=== PATIENT | male | born 1990 | race Two or more races ===

== ENCOUNTER 2019-12-24 17:15 | Inpatient (IN) ==
[2019-12-24] MEDS ORDERED: XOPENEX 1.25 MG/3 ML NEBULE NEB ONE ×2 (17:27→17:33)
[2019-12-24] MEDS ORDERED: NS 1000 ML 1,000 ML ONE ×2 (17:28→18:50)
[2019-12-24] MEDS ORDERED: MOTRIN TAB 800 MG PO ONE ×2 (17:28→17:34)
[2019-12-24] MEDS: NS 1000 ML 1,000 ML IV SCH (17:35)
[2019-12-24] MEDS ORDERED: DUONEB 0.5 MG/3 MG (3 mL) NEB ONE (17:48)
--- NOTE | 2019-12-24 17:49 | DR.SOBA ---
HPI - Time Seen Time seen: 17:46 - Complaints Chief Complaint Doctors Comments: Patient is complaining of cold, cough, fever, SOB, wheezing for the past three days getting progressively worst. Patient was seen in the emergency room and COVID-19 test was done and is still pending. Patient is taking zithromax 250mg; Tessalon perles and sinus medicines. States he has been having catching his breath today and has a history of asthma. states he has take breathing treatments in the past with improvement in his SOB. Patient works with the [employer]. He denies chest pain, nauea or vomiting. - COVID-19 Coronavirus risk:travel/contact w/high risk person: Yes Has patient experienced Coronavirus symptoms: Yes Coronavirus symptoms experienced: Fever, Coughing, Shortness of Breath - Reviewed Nurses Notes Reviewed: Yes - Source History Provided: Patient - Mode of Arrival Mode of Arrival: Ambulatory - Duration Duration: Days - Context Onset:: At Rest PE Risk Factors:: None History of:: Asthma Currently on:: Neither Prehospital Care:: None - Modifying Factors Worsens:: Exertion Improves:: Nothing - Associated Signs and Symptoms Associated Signs and Symptoms: Fever, Wheeze, Cough - If Cough Cough: Nonproductive PMH - PMH Past Surgical History: No - Social History Do you use any recreational Drugs:: No - infectious screening Isolation: Droplet ROS - Review of Systems Constitutional: No Symptoms Reported, Fever, Loss of Appetite Eyes: No Symptoms Reported ENTM: No Symptoms Reported Respiratoy: No Symptoms Reported, Productive Cough, Short of Breath, Wheezing Cardiovascular: No Symptoms Reported Gastrointestinal/Abdominal: No Symptoms Reported. negative: See HPI, Abdominal Pain, Constipation, Diarrhea, Nausea, Vomiting, Food Intolerance, Other Genitourinary: No Symptoms Reported Neurological: No Symptoms Reported Musculoskeletal: No Symptoms Reported Integumentary: No Symptoms Reported Hematologic/Lymphatic: No Symptoms Reported Endocrine: No Symptoms Reported Psychiatric: No Symptoms Reported PE - General Limitations: No Limitations General Appearance: Alert, In Distress (moderate) - Head Head Exam: Normal Inspection, Atraumatic, Normocephalic - Eyes Eye exam: Normal Appearance, PERRL, EOMI. negative: Scleral Icterus, Conjunctival Injection, Nystagmus, Miosis, Mydrasis, Periorbital Swelling, Periorbital Tenderness, Other - ENT ENT Exam: Normal Exam, Normal Oropharynx, Normal External Ear Exam, Mucous Membranes Moist, TM's Normal Bilaterally - Neck Neck Exam: Normal Inspection, Full ROM, Trachea Midline. negative: Tenderness, Meningismus, Lymphadenopathy, Thyromegaly, Other - Chest Chest Inspection: Normal Inspection, Symmetric Chest Wall Rise. negative: Tenderness, Rash, Abscess, Other - Respiratory Respiratory Exam: Normal Lung Sounds Bilat, Prolonged Expiratory Phase, Respiratory Distress Respiratory Exam: Bilateral Wheezing, Bilateral Decreased Breath Sounds - Cardiovascular Cardiovascular Exam: Regular Rate, Normal Rhythm, Tachycardia, Normal Heart Sounds - Abdominal Exam Abdominal Exam: Normal Inspection, Normal Bowel Sounds, Soft. negative: Distention, Tenderness, Guarding, Rebound, Rigidity, Dimnished Bowel Sounds, Hyperactive Bowel Sounds, Hypoactive Bowel Sounds, Organomegaly, Trauma, Incision, Ascites, Mass, Bruit, Pulsatile Mass, Hernia, Other Abdominal Tenderness: negative: RUQ, RLQ, LUQ, LLQ, Epigastrium, Suprapubic, Diffuse, Mild, Moderate, Severe, Other - Extremities Extremities Exam: Normal Inspection, Full ROM, Normal Capillary Refill. negative: Tenderness, Edema, Joint Swelling, Calf Tenderness, Other - Back Back Exam: Normal Inspection, Full ROM. negative: Tenderness, (R) CVA Tenderness, (L) CVA Tenderness, Muscle Spasm, Paraspinal Tenderness, Vertebral Tenderness, Rashes, (R) Sciatic Notch Tenderness, (L) Sciatic Notch Tendern, (R) Straight Leg Raise, (L) Straight Leg Raise, Other - Neurologic Neurological Exam: Alert, Oriented X3, CN II-XII Intact, Normal Gait, Reflexes Normal - Psychiatric Psychiatric Exam: Normal Affect, Normal Mood. negative: Depressed, Agitated, Anxious, Flat Affect, Manic, Homicidal Ideation, Suicidal Ideation, Other - Skin Skin Exam: Warm, Dry, Intact, Normal Color - Vital Signs Vitals: Temperature 102.9 F Pulse Rate 92 Respiratory Rate 33 Blood Pressure [Left Arm] 112/65 Blood Pressure 112/65 O2 Sat by Pulse Oximetry 96 Course - Reevaluation 1st: Improved - Consultation Called: 20:14 Call Returned: 20:14 (Dr. English to admit and place of viral pneumonia protocol) - Education/Counseling Education/Counseling: Patient, Family Educated On: Treatment, Diagnosis, Needs for Follow Up ROR - Labs Reviewed Laboratory Results Reviewed?: Yes (All labs and x-ray results reviewed and discussed with patient) Result Diagrams: 12/24/19 17:41 12/24/19 17:41 - XRAY XRAY Interpreted by: Radiologist (CXR: No significant change in multifocal pneumonia.) - Labs Reviewed Laboratory: WBC 7.7 X10^3/uL (3.6-10.0) 12/24/19 17:41 RBC 5.02 X10^6/uL (4.7-6.0) 12/24/19 17:41 Hgb 15.6 g/dL (13.5-18.0) 12/24/19 17:41 Hct 44.4 % (42.0-54.0) 12/24/19 17:41 MCV 88.3 fL (80.0-100.0) 12/24/19 17:41 MCH 31.1 pg (27.0-34.0) 12/24/19 17:41 MCHC 35.2 g/dL (33.0-35.0) H 12/24/19 17:41 RDW 13.1 % (11.6-16.5) 12/24/19 17:41 Plt Count 188 X10^3/uL (150.0-450.0) 12/24/19 17:41 MPV 8.7 fL (7.4-11.0) 12/24/19 17:41 Neut % (Auto) 74.5 % (42.0-75.0) 12/24/19 17:41 Lymph % (Auto) 17.1 % (21.0-51.0) L 12/24/19 17:41 Brantley % (Auto) 7.3 % (0.0-13.0) 12/24/19 17:41 Eos % (Auto) 0.8 % (0.9-2.9) L 12/24/19 17:41 Baso % (Auto) 0.3 % (0.2-1.0) 12/24/19 17:41 Neut # (Auto) 5.7 x10^3/uL (2.2-4.8) H 12/24/19 17:41 Lymph # (Auto) 1.3 X10^3/uL (1.3-2.9) 12/24/19 17:41 Brantley # (Auto) 0.6 x10^3/uL (0.3-0.8) 12/24/19 17:41 Eos # (Auto) 0.1 x10^3/uL (0.0-0.2) 12/24/19 17:41 Baso # (Auto) 0.0 X10^3/uL (0.0-0.1) 12/24/19 17:41 Absolute Nucleated RBC 0.0 /100WBC 12/24/19 17:41 Sample Site Lb 12/24/19 18:04 ABG pH 7.460 (7.35-7.45) H 12/24/19 18:04 ABG pCO2 30.0 mmHg (35.0-45.0) L 12/24/19 18:04 ABG pO2 65.0 mmHg (80.0-100.0) L 12/24/19 18:04 ABG HCO3 21.3 mmol/L (22-26) L 12/24/19 18:04 ABG O2 Saturation 94.0 % (90-100) 12/24/19 18:04 ABG Base Excess -1.6 mmol/L (-2.0-2.0) 12/24/19 18:04 Darron Test Na 12/24/19 18:04 A-a Gradient 97.0 mmHg 12/24/19 18:04 FiO2 28.0 12/24/19 18:04 Blood Gas Comments Blanquita well cb 12/24/19 18:04 Sodium 134 mmol/L (136-145) L 12/24/19 17:41 Corrected Sodium 135 mmol/L (136-145) L 12/24/19 17:41 Potassium 3.5 mmol/L (3.5-5.1) 12/24/19 17:41 Chloride 98 mmol/L (98-107) 12/24/19 17:41 Carbon Dioxide 23.8 mmol/L (21-32) 12/24/19 17:41 BUN 13 mg/dL (7-18) 12/24/19 17:41 Creatinine 0.89 mg/dL (0.70-1.30) 12/24/19 17:41 Est GFR (MDRD) Af Amer > 60 (>60) 12/24/19 17:41 Est GFR (MDRD) Non-Af > 60 (>60) 12/24/19 17:41 Glucose 153 mg/dL (65-99) H 12/24/19 17:41 Calcium 8.5 mg/dL (8.5-10.1) 12/24/19 17:41 Corrected Calcium 9.1 mg/dL (8.5-10.1) 12/24/19 17:41 Total Bilirubin 0.50 mg/dL (0.2-1.0) 12/24/19 17:41 AST 56 Units/L (15-37) H 12/24/19 17:41 ALT 66 Units/L (12-78) 12/24/19 17:41 Alkaline Phosphatase 62 Units/L (46-116) 12/24/19 17:41 Total Protein 8.2 g/dL (6.4-8.2) 12/24/19 17:41 Albumin 3.3 g/dL (3.4-5.0) L 12/24/19 17:41 Globulin 4.9 g/dL (2.5-4.5) H 12/24/19 17:41 Albumin/Globulin Ratio 0.7 Ratio (1.1-2.1) L 12/24/19 17:41 Influenza Type A Ag Negative-presumptive (NEGATIVE) 12/24/19 17:55 Influenza Type B Ag Negative-presumptive (NEGATIVE) 12/24/19 17:55 S. pyogenes (TEM-PCR) Not detected (NOT DETECT) 12/24/19 17:55 Opioid - Opioid Risk Tool Age (Miguel box if 16-45): No History of Preadolescent Sexual Abuse: No Total: 0 Total Score Risk Category: Low Risk - Diagnosis Discharge Problem: Multifocal pneumonia, Suspected COVID-19 virus infection, Hyperglycemia, Respiratory distress, acute, History of asthma - Discharge Plan Disposition: ADMITTED INPATIENT Condition: Stable - Follow ups/Referrals Follow ups/Referrals: NFD,None [Primary Care Provider] - 3 days - Instructions
[2019-12-24] MEDS ORDERED: NS 1000 ML 1,000 ML IV SCH ×3 (18:00→23:00)
[2019-12-24 18:02] LABS: BASOPHILS % (AUTO) 0.3 % (0.2-1.0); EOSINOPHILS # (AUTO) 0.1 x10^3/uL (0.0-0.2); EOSINOPHILS % (AUTO) 0.8 % (0.9-2.9); HEMATOCRIT 44.4 % (42.0-54.0); HEMOGLOBIN 15.6 g/dL (13.5-18.0); LYMPHOCYTES # (AUTO) 1.3 X10^3/uL (1.3-2.9); LYMPHOCYTES % (AUTO) 17.1 % (21.0-51.0); MEAN CORPUSCULAR HEMOGLOBIN 31.1 pg (27.0-34.0); MEAN CORPUSCULAR HGB CONC 35.2 g/dL (33.0-35.0); MEAN CORPUSCULAR VOLUME 88.3 fL (80.0-100.0); MEAN PLATELET VOLUME 8.7 fL (7.4-11.0); MONOCYTES # (AUTO) 0.6 x10^3/uL (0.3-0.8); MONOCYTES % (AUTO) 7.3 % (0.0-13.0); NEUTROPHILS # (AUTO) 5.7 x10^3/uL (2.2-4.8); NEUTROPHILS % (AUTO) 74.5 % (42.0-75.0); PLATELET COUNT 188 X10^3/uL (150.0-450.0); RED BLOOD COUNT 5.02 X10^6/uL (4.7-6.0); RED CELL DISTRIBUTION WIDTH 13.1 % (11.6-16.5); WHITE BLOOD COUNT 7.7 X10^3/uL (3.6-10.0)
[2019-12-24 18:08] LABS: ALANINE AMINOTRANSFERASE 66 Units/L (12-78); ALBUMIN 3.3 g/dL (3.4-5.0); ALKALINE PHOSPHATASE 62 Units/L (46-116); ASPARTATE AMINO TRANSFERASE 56 Units/L (15-37); BLOOD UREA NITROGEN 13 mg/dL (7-18); CALCIUM 8.5 mg/dL (8.5-10.1); CARBON DIOXIDE 23.8 mmol/L (21-32); CHLORIDE 98 mmol/L (98-107); COR CA(FOR HYPOALB) 9.1 mg/dL (8.5-10.1); COR NA(FOR HYPERGLY) 135 mmol/L (136-145); CREATININE 0.89 mg/dL (0.70-1.30); SODIUM 134 mmol/L (136-145); TOTAL PROTEIN 8.2 g/dL (6.4-8.2); eGFR NON BLACK RACES > 60 (>60)
[2019-12-24 18:10] LABS: ABG BASE EXCESS -1.6 mmol/L (-2.0-2.0); ABG HCO3 21.3 mmol/L (22-26)
--- NOTE | 2019-12-24 18:15 | RAD ---
HISTORYfever, cough, cogestion, chillsSTUDYCHEST, 1 [id number]/2020FINDINGSTrachea is midline. Heart size unchanged. Multifocal peribronchial thickening and airspace consolidation within both lungs has not significantly changed from prior exam. No pleural effusion or pneumothorax. No acute osseous abnormality.IMPRESSIONNo significant change in multifocal pneumonia.Electronically signed by: YEYO SOTO (December 24, 2019 18:13:29)
[2019-12-24] MEDS ORDERED: ZOSYN VIAL 3.375 GRAMS 3.375 G in NS 100 ML IV + SPIKE MINIBAG* 100 ML IV ONE (18:40)
[2019-12-24] MEDS ORDERED: NS 100 ML IV + SPIKE MINIBAG* 100 ML IV ONE (18:51)
[2019-12-24] MEDS ORDERED: ZOSYN VIAL 3.375 GRAMS IV ONE (18:51)
[2019-12-24] MEDS ORDERED: VENTOLIN or PROAIR HFA IN ONE (19:05)
[2019-12-24] MEDS ORDERED: ASCORBIC ACID INJ MULTI-DOSE VIAL IM SCH (20:30)
[2019-12-24] MEDS ORDERED: VENTOLIN or PROAIR HFA ONE (22:09)
[2019-12-24] MEDS: THIAMINE HCL INJ IM SCH (22:56)
[2019-12-24] MEDS: PLAQUENIL PO SCH (22:56)
[2019-12-24] MEDS: ZINC SULFATE PO SCH (22:57)
[2019-12-25] MEDS: VITAMIN C PO SCH ×2 (00:35→05:20)
[2019-12-25 02:14] VITALS: BMI 36.8
[2019-12-25] MEDS: NS 1000 ML 1,000 ML IV SCH ×3 (02:24→18:21)
[2019-12-25 05:18] LABS: BASOPHILS % (AUTO) 0.1 % (0.2-1.0); EOSINOPHILS # (AUTO) 0.1 x10^3/uL (0.0-0.2); EOSINOPHILS % (AUTO) 1.4 % (0.9-2.9); HEMATOCRIT 38.3 % (42.0-54.0); HEMOGLOBIN 13.5 g/dL (13.5-18.0); LYMPHOCYTES # (AUTO) 1.2 X10^3/uL (1.3-2.9); LYMPHOCYTES % (AUTO) 19.1 % (21.0-51.0); MEAN CORPUSCULAR HEMOGLOBIN 31.2 pg (27.0-34.0); MEAN CORPUSCULAR HGB CONC 35.2 g/dL (33.0-35.0); MEAN CORPUSCULAR VOLUME 88.7 fL (80.0-100.0); MEAN PLATELET VOLUME 8.8 fL (7.4-11.0); MONOCYTES # (AUTO) 0.4 x10^3/uL (0.3-0.8); MONOCYTES % (AUTO) 6.9 % (0.0-13.0); NEUTROPHILS # (AUTO) 4.4 x10^3/uL (2.2-4.8); NEUTROPHILS % (AUTO) 72.5 % (42.0-75.0); PLATELET COUNT 187 X10^3/uL (150.0-450.0); RED BLOOD COUNT 4.32 X10^6/uL (4.7-6.0); RED CELL DISTRIBUTION WIDTH 12.9 % (11.6-16.5); WHITE BLOOD COUNT 6.1 X10^3/uL (3.6-10.0)
[2019-12-25 05:27] LABS: ALANINE AMINOTRANSFERASE 54 Units/L (12-78); ALBUMIN 2.6 g/dL (3.4-5.0); ALKALINE PHOSPHATASE 44 Units/L (46-116); ASPARTATE AMINO TRANSFERASE 44 Units/L (15-37); BLOOD UREA NITROGEN 11 mg/dL (7-18); CALCIUM 7.8 mg/dL (8.5-10.1); CARBON DIOXIDE 23.8 mmol/L (21-32); CHLORIDE 106 mmol/L (98-107); COR CA(FOR HYPOALB) 8.9 mg/dL (8.5-10.1); COR NA(FOR HYPERGLY) 139 mmol/L (136-145); CREATININE 0.67 mg/dL (0.70-1.30); SODIUM 138 mmol/L (136-145); TOTAL PROTEIN 6.7 g/dL (6.4-8.2); eGFR NON BLACK RACES > 60 (>60)
[2019-12-25] MEDS ORDERED: VITAMIN D (1.25MG) PO SCH (09:00)
[2019-12-25] MEDS ORDERED: VITAMIN A PO SCH (09:00)
[2019-12-25] MEDS: ZINC SULFATE PO SCH ×2 (09:50→20:23)
[2019-12-25] MEDS: THIAMINE HCL INJ IM SCH ×2 (09:55→20:22)
[2019-12-25] MEDS: PLAQUENIL PO SCH ×2 (10:32→20:22)
[2019-12-25] MEDS: NS 100 ML IV 100 ML with ASCORBIC ACID INJ MULTI-DOSE VIAL 1,500 MG IV SCH ×6 (10:32→20:22)
[2019-12-25] MEDS: VENTOLIN or PROAIR HFA IN SCH ×3 (10:35→18:00)
[2019-12-25] MEDS: TUSSIONEX PENNKINETIC SUSP PO PRN (15:07)
[2019-12-25] MEDS: RHINOCORT ALLERGY NASAL SPRAY ENOSTRIL SCH (15:07)
[2019-12-25] MEDS: ROCEPHIN VIAL 1 GRAM 1 G in NS 100 ML IV + SPIKE MINIBAG* 100 ML IV SCH (21:00)
[2019-12-26] MEDS: NS 1000 ML 1,000 ML IV SCH ×4 (00:43→19:00)
[2019-12-26] MEDS: NS 100 ML IV 100 ML with ASCORBIC ACID INJ MULTI-DOSE VIAL 1,500 MG IV SCH ×8 (02:38→21:26)
[2019-12-26] MEDS: TUSSIONEX PENNKINETIC SUSP PO PRN (02:39)
[2019-12-26 05:09] LABS: BASOPHILS % (AUTO) 0.4 % (0.2-1.0); EOSINOPHILS # (AUTO) 0.2 x10^3/uL (0.0-0.2); EOSINOPHILS % (AUTO) 2.9 % (0.9-2.9); HEMATOCRIT 37.5 % (42.0-54.0); LYMPHOCYTES # (AUTO) 1.6 X10^3/uL (1.3-2.9); LYMPHOCYTES % (AUTO) 26.4 % (21.0-51.0); MEAN CORPUSCULAR HEMOGLOBIN 31.2 pg (27.0-34.0); MEAN CORPUSCULAR HGB CONC 34.6 g/dL (33.0-35.0); MEAN PLATELET VOLUME 8.5 fL (7.4-11.0); MONOCYTES # (AUTO) 0.5 x10^3/uL (0.3-0.8); MONOCYTES % (AUTO) 8.4 % (0.0-13.0); NEUTROPHILS # (AUTO) 3.6 x10^3/uL (2.2-4.8); NEUTROPHILS % (AUTO) 61.9 % (42.0-75.0); PLATELET COUNT 236 X10^3/uL (150.0-450.0); RED BLOOD COUNT 4.17 X10^6/uL (4.7-6.0); RED CELL DISTRIBUTION WIDTH 13.4 % (11.6-16.5); WHITE BLOOD COUNT 5.9 X10^3/uL (3.6-10.0)
[2019-12-26 05:21] LABS: ALANINE AMINOTRANSFERASE 65 Units/L (12-78); ALBUMIN 2.5 g/dL (3.4-5.0); ALKALINE PHOSPHATASE 56 Units/L (46-116); ASPARTATE AMINO TRANSFERASE 64 Units/L (15-37); BLOOD UREA NITROGEN 6 mg/dL (7-18); CALCIUM 7.9 mg/dL (8.5-10.1); CHLORIDE 105 mmol/L (98-107); COR CA(FOR HYPOALB) 9.1 mg/dL (8.5-10.1); COR NA(FOR HYPERGLY) 139 mmol/L (136-145); CREATININE 0.69 mg/dL (0.70-1.30); SODIUM 138 mmol/L (136-145); TOTAL PROTEIN 6.6 g/dL (6.4-8.2); eGFR NON BLACK RACES > 60 (>60)
[2019-12-26] MEDS: ZINC SULFATE PO SCH ×2 (08:31→21:27)
[2019-12-26] MEDS: PLAQUENIL PO SCH ×2 (08:31→21:27)
[2019-12-26] MEDS: VITAMIN A PO SCH (08:31)
[2019-12-26] MEDS: VENTOLIN or PROAIR HFA IN SCH ×4 (08:31→16:20)
[2019-12-26] MEDS: THIAMINE HCL INJ IM SCH (08:32)
[2019-12-26] MEDS: RHINOCORT ALLERGY NASAL SPRAY ENOSTRIL SCH (08:32)
[2019-12-26] MEDS: VITAMIN D3 25 mcg (1,000 UNITS) PO SCH (08:32)
[2019-12-26] MEDS ORDERED: ZOFRAN INJ 4 MG VIAL IVP ONE (08:37)
[2019-12-26] MEDS ORDERED: ZOFRAN INJ 4 MG VIAL ONE (08:37)
[2019-12-26] MEDS ORDERED: ZOFRAN INJ 4 MG VIAL IVP PRN (09:42)
[2019-12-26] MEDS: LOVENOX INJ 40 MG SYR SC SCH (11:33)
[2019-12-26] MEDS: ROCEPHIN VIAL 1 GRAM 1 G in NS 100 ML IV + SPIKE MINIBAG* 100 ML IV SCH (21:19)
[2019-12-26] MEDS: THIAMINE HCL INJ IVP SCH (21:27)
[2019-12-27] MEDS: NS 1000 ML 1,000 ML IV SCH (02:00)
[2019-12-27] MEDS: NS 100 ML IV 100 ML with ASCORBIC ACID INJ MULTI-DOSE VIAL 1,500 MG IV SCH ×4 (03:05→10:01)
[2019-12-27 05:25] LABS: BASOPHILS % (AUTO) 0.6 % (0.2-1.0); EOSINOPHILS # (AUTO) 0.2 x10^3/uL (0.0-0.2); HEMATOCRIT 37.6 % (42.0-54.0); HEMOGLOBIN 12.8 g/dL (13.5-18.0); LYMPHOCYTES # (AUTO) 1.5 X10^3/uL (1.3-2.9); MEAN CORPUSCULAR HEMOGLOBIN 30.9 pg (27.0-34.0); MEAN CORPUSCULAR VOLUME 90.8 fL (80.0-100.0); MEAN PLATELET VOLUME 8.6 fL (7.4-11.0); MONOCYTES # (AUTO) 0.4 x10^3/uL (0.3-0.8); MONOCYTES % (AUTO) 9.3 % (0.0-13.0); NEUTROPHILS # (AUTO) 2.3 x10^3/uL (2.2-4.8); NEUTROPHILS % (AUTO) 52.1 % (42.0-75.0); PLATELET COUNT 282 X10^3/uL (150.0-450.0); RED BLOOD COUNT 4.14 X10^6/uL (4.7-6.0); RED CELL DISTRIBUTION WIDTH 13.5 % (11.6-16.5); WHITE BLOOD COUNT 4.5 X10^3/uL (3.6-10.0)
[2019-12-27 05:43] LABS: ALANINE AMINOTRANSFERASE 81 Units/L (12-78); ALBUMIN 2.5 g/dL (3.4-5.0); ALKALINE PHOSPHATASE 53 Units/L (46-116); ASPARTATE AMINO TRANSFERASE 76 Units/L (15-37); BLOOD UREA NITROGEN 8 mg/dL (7-18); CALCIUM 8.1 mg/dL (8.5-10.1); CHLORIDE 107 mmol/L (98-107); COR CA(FOR HYPOALB) 9.3 mg/dL (8.5-10.1); CREATININE 0.73 mg/dL (0.70-1.30); SODIUM 142 mmol/L (136-145); TOTAL PROTEIN 6.5 g/dL (6.4-8.2); eGFR NON BLACK RACES > 60 (>60)
[2019-12-27] MEDS: VENTOLIN or PROAIR HFA IN SCH (09:15)
[2019-12-27 09:46] VITALS: BP 122/74
[2019-12-27] MEDS: LOVENOX INJ 40 MG SYR SC SCH (09:57)
[2019-12-27] MEDS: PLAQUENIL PO SCH (09:57)
[2019-12-27] MEDS: RHINOCORT ALLERGY NASAL SPRAY ENOSTRIL SCH (09:59)
[2019-12-27] MEDS: VITAMIN A PO SCH (09:59)
[2019-12-27] MEDS: VITAMIN D3 25 mcg (1,000 UNITS) PO SCH (10:00)
[2019-12-27] MEDS: ZINC SULFATE PO SCH (10:00)
[2019-12-27] MEDS: THIAMINE HCL INJ IVP SCH (10:01)
== END 2019-12-27 10:35 | disposition home or self-care (01) | DRG 177 ==
LOC: ER 17:15 → ICU 20:23
PROVIDERS: ADMIT Obstetrics & Gynecology Obstetrics; ATTEND Obstetrics & Gynecology Obstetrics
DX: E11.65 Type 2 diabetes mellitus with hyperglycemia; U07.1 COVID-19; R05 Cough; R06.02 Shortness of breath; J12.89 Other viral pneumonia
CPT/HCPCS: 36415; 36600; 71010; 71045; 80053; 82803; 85025; 87040; 87400; 87651; 87804; 94640; 96365; 96367; 96374; 99284; A4222; J0696; J1650; J2405; J2543; J3411; J7030; J7050